=== PATIENT | female | born 1930 | race Caucasian/White ===

== ENCOUNTER 2016-12-03 14:44 | Inpatient (IN) ==
--- NOTE | 2016-12-03 15:01 | PROVIDER DOCUMENTATION ---
HPI-General Adult - General Chief Complaint: Edema Stated Complaint: Edema Time Seen by Provider: 12/03/16 14:48 Source: patient, family Allergies/Adverse Reactions: Patient Allergies Allergy/AdvReac Type Severity Reaction Status Date / Time Penicillins Allergy Severe ANAPHYLAXIS Verified 02/02/15 10:15 Sulfa (Sulfonamide Allergy Severe ANAPHYLAXIS Verified 02/02/15 10:15 Antibiotics) latex Allergy Unknown Unknown Verified 02/02/15 10:15 codeine Allergy DIARRHEA Verified 02/02/15 10:15 Home Medications: Home Medication List Medication Instructions Recorded Confirmed Last Taken Type Fexofenadine [Edie] 180 mg PO DAILY 10/12/12 08/27/14 08/26/14 08:00 History Glipizide [Glucotrol] 10 mg PO BID 10/12/12 08/27/14 08/26/14 16:00 History Lisinopril/Hydrochlorothiazide 25 mg PO DAILY 10/12/12 08/27/14 08/26/14 08:00 History [Lisinopril-Hctz 20-25 mg Tab] Metformin HCl [Metformin HCl ER] 500 mg PO BID 10/12/12 08/27/14 08/26/14 16:00 History Metoprolol Succinate E.r. [Toprol 25 mg PO DAILY 10/12/12 08/27/14 08/26/14 03: 30 History Xl] Docusate Sodium [Colace] 2 cap PO HS 08/09/14 08/27/14 08/26/14 20:30 History Doxazosin [Cardura] 1 mg PO DAILY 08/09/14 08/27/14 08/26/14 08:30 History Ferrous Sulfate [Albafort] 325 mg PO DAILY 08/09/14 08/26/14 08/09/14 19:00 History Insulin Glargine [Lantus] 8 units SQ HS 08/09/14 08/27/14 08/26/14 20:30 History Insulin Human Regular [Humulin R] 4 units SQ QAM 08/09/14 08/27/14 08/26/14 08: 00 History Pantoprazole [Protonix] 40 mg PO DAILY@0700 #30 tablet 08/09/14 08/27/14 08:00 Rx Polyethylene Glycol 3350 [Miralax] 17 gm PO DAILY 08/09/14 08/27/14 08/26/14 08: 30 History Diphenoxylate/Atropine [Lomotil] 1 each PO Q6H PRN PRN 08/26/14 08/26/14 Unknown History Furosemide [Lasix] 20 mg PO PRN PRN 08/26/14 08/26/14 Unknown History Hydrocodone/Acetaminophen [[place] 1 each PO Q4H PRN PRN 08/26/14 08/26/14 Unknown History 7.5-325 Tablet] Insulin Human Regular [Humulin R] 8 unit SUBQ QPM 08/26/14 08/27/14 08/26/14 20: 00 History LISINOpril [Prinivil] 10 mg PO HS 08/26/14 08/27/14 08/26/14 20:30 History Magnesium Hydroxide [Milk of 30 ml PO DAILY PRN PRN 08/26/14 08/26/14 Unknown History Magnesia] Ondansetron [Zofran Odt] 4 mg PO TID PRN PRN 08/26/14 08/26/14 Unknown History Warfarin [Coumadin] 4.5 mg PO QHS 08/26/14 08/27/14 08/22/14 20:00 History - History of Present Illness -Gen Adult Nature of Presenting Problems: pt is a 86 y/o F that presents to the ER with swelling to bilateral legs for 4 days. Denies chest pain or shortness of breath. No cough or fever. Has seen Dr.Irle terrance ortiz. Patient also bit her tongue. Location of Pain/Injury: reports: lower extremity Quality of Pain: reports: dull Severity: reports: moderate, severe Onset/Duration: reports: gradual, 4 days ago Timing: reports: still present, getting worse Context/Activities at Onset: reports: none Modifying Factors: improves with: nothing Associated Symptoms: reports: EENT symptoms. denies: back/neck pain, diarrhea, fever/chills, genitourinary problems, shortness of breath, vomiting Similar Symptoms Previously?: Yes Recently seen or treated by another doctor?: Yes Review of Systems - Adult - REVIEW OF SYSTEMS - ADULT Constitutional: denies: chills, fever Eyes: reports: no symptoms reported Ears, Nose, Mouth & Throat: reports: no symptoms reported Cardiovascular: reports: edema. denies: chest pain, palpitations Respiratory: denies: cough, dyspnea on exertion, shortness of breath, wheezing Gastrointestinal: denies: abdominal pain, diarrhea, nausea, vomiting Genitourinary: reports: no symptoms reported Musculoskeletal: denies: back pain, muscle aches, muscle weakness Integumentary: reports: no symptoms reported Neurological: reports: no symptoms reported Psychiatric: reports: no symptoms reported Endocrine: reports: no symptoms reported Hematologic/Lymphatic: reports: no symptoms reported Allergic/Immunologic: reports: no symptoms reported All Other Systems: Reviewed and Negative Past History - Adult - PAST MEDICAL HISTORY-ADULT Review of Records: reports: Old Records Reviewed, Nursing Assessment Review, Medications Reviewed Cardiovascular: reports: HTN Respiratory: reports: asthma Gastrointestinal: reports: GERD Neurological: reports: CVA, stroke deficits - PRIOR SURGERIES/PROCEDURES Surgical/Procedure History: reports: cholecystectomy, hysterectomy - IMMUNIZATION STATUS Childhood Immunizations: UTD - FAMILY HISTORY Family History: reviewed, not pertinent - SOCIAL HISTORY Smoking: non-smoker Living Situation: care facility Physical Exam-General - PHYSICAL EXAM-ADULT Initial Vital Signs Reviewed: Yes - CONSTITUTIONAL General Appearance: alert, no apparent distress - EYES Eyes: PERRL/EOMI, pale conjunctivae - HEAD, EARS, NOSE, MOUTH & THROAT HENMT: TMs normal, pharynx normal, other (dry oral mucosa, bite emily tongue) - NECK Neck: full range of motion, normal inspection - RESPIRATORY Respiratory: lungs clear, normal breath sounds, no respiratory distress, no accessory muscle use - CARDIOVASCULAR Cardiovascular: no murmur, tachycardia - GASTROINTESTINAL (ABDOMEN) Abdominal Exam: normal bowel sounds, soft, no organomegaly, no pulsatile mass, tenderness (diffusely) - MUSCULOSKELETAL Extremity: normal capillary refill, pedal edema (4 plus from ankle to upper thigh) - SKIN Integumentary: warm/dry. negative: ecchymosis - NEUROLOGIC Neurologic: grossly normal, no motor/sensory deficits - PSYCHIATRIC Psych/Mental Status: normal mood/affect, normal thought content, normal thought process, oriented x 3 Progress - PLAN OF CARE/RESULTS Progress/Plan/Lab Results: Vital Signs - 8 hr 12/03/16 14:49 Temperature 97.8 F Pulse Rate 120 H Respiratory Rate 20 Blood Pressure 137/52 O2 Sat by Pulse Oximetry 95 Result Diagrams: 12/03/16 15:22 - CONSULTS/PCP/HOSPITALIST Notification #1 *Consult/PCP/Hospitalist*: Time Discussed: 15:38 Consult Disposition: Admit Departure - Departure Time of Disposition Decision: 15:38 DIAGNOSIS: Anasarca, Gross hematuria Anemia Qualifiers: Anemia type: unspecified type Qualified Code(s): D64.9 - Anemia, unspecified Disposition: ADMITTED INPATIENT 09 Certified Medical Emergency: Emergent Condition: Stable Referrals and Follow-Ups: Wilmer Figueroa MD [Primary Care Provider] -
[2016-12-03 15:25] LABS: MANUAL DIFF NEEDED? NO
[2016-12-03 15:29] LABS: BASO% 0.3 % (0.0-0.8); EOS# 0.09 X1000 (0.0-0.7); EOS% 0.8 % (0.0-10.0); HEMATOCRIT 20.3 % (37.0-47.0); HEMOGLOBIN 6.5 g/dL (12.0-16.0); IMM GRAN# 0.04 X1000 (0.0-0.04); IMM GRAN% 0.4 % (0.0-0.5); LYMPH# 1.78 X1000 (1.2-3.4); LYMPH% 15.9 % (20.5-51.1); MCH 28.6 PG (27-31); MCV 89.4 FL (81-99); MONO# 0.85 X1000 (0.11-0.59); MONO% 7.6 % (1.7-9.3); MPV 9.6 FL (7.4-10.4); PLT 433 X1000 (130-400); RBC 2.27 XMIL (4.2-5.4)
[2016-12-03 15:58] LABS: BILIRUBIN URINE NEGATIVE (NEGATIVE); BLOOD URINE 4+ (NEGATIVE); CLARITY VERY CLOUDY (CLEAR); COLOR YELLOW; GLUCOSE URINE NEGATIVE (NEGATIVE); LEUKOCYTES URINE 1+ (NEGATIVE); NITRITE URINE NEGATIVE (NEGATIVE); PROTEIN URINE 1+(30 mg/dL) mg/dL (NEGATIVE); SP GRAVITY URINE 1.005; UROBILINOGEN URINE 1+(1 mg/dL)
[2016-12-03 15:59] LABS: URINE EPITHELIAL CELLS <10 /HPF (<10); URINE RBC TNTC /HPF (<10); URINE SOURCE CATH; URINE WBC <10 /HPF (<10)
[2016-12-03 16:00] LABS: URINE CULTURE PL NEEDED? YES
[2016-12-03 16:02] LABS: ALBUMIN 2.6 g/dL (3.5-5.0); CALCIUM 8.2 mg/dL (8.8-10.2); POTASSIUM 3.6 mmol/L (3.5-5.1); TOTAL BILIRUBIN 1.2 mg/dL (0.20-1.00); TOTAL PROTEIN 6.5 g/dL (6.3-8.3)
--- NOTE | 2016-12-03 16:36 | Diag Imaging Result Document ---
PROCEDURE NAME: US RENAL 2 (RETROPER) COMPLETE - 12/03/2016 RENAL/BLADDER ULTRASOUND PERFORMED PORTABLY: INDICATION: Abdomen pain. Low hemoglobin and hematocrit. Bladder cancer. Hematuria. FINDINGS: This evaluation is limited technically. The bladder was decompressed via Abebe catheter. The kidneys appear normal in size. There is cortical thinning bilaterally. No hydronephrosis is appreciated. There are a few well-circumscribed probable cystic areas anteromedial to the left kidney. The largest measures 1.5 cm. IMPRESSION: 1. No hydronephrosis. 2. Urinary bladder is decompressed via Abebe catheter. 3. Probable perirenal cysts on the left.
[2016-12-03 16:55] LABS: PTT PL 142.1 Seconds (22.6-43.9)
[2016-12-03 17:06] LABS: INR > 16.00 (0.86-1.15); PROTIME 119.2 Seconds (12.1-15.5)
[2016-12-03] MEDS ORDERED: VITAMIN K SUBQ ONE (17:08)
[2016-12-03] MEDS ORDERED: PROTONIX 80 MG in NS 80 ML IV ONE (17:42)
[2016-12-03] MEDS ORDERED: ZOFRAN IV PRN ×2 (17:55→20:55)
[2016-12-03] MEDS ORDERED: PROTONIX 80 MG in NS 80 ML IV SCH (18:15)
--- NOTE | 2016-12-03 18:18 | HISTORY AND PHYSICAL ---
PRIMARY CARE PHYSICIAN: Dr. Wilmer Figueroa. CHIEF COMPLAINT: Lower extremity edema. HISTORY OF PRESENT ILLNESS: This is an 86-year-old female with a history hypertension, diabetes mellitus, prior CVA, who presented to the emergency room with increasing confusion and lower extremity edema over the last 2-3 days. The daughter states that she had been in her normal state of health until probably about Tuesday she started having a little bit confusion and just through the last 24-48 hours she has been more confused, she has been lethargic so she was brought in for an evaluation. She was found to have a hemoglobin of 6.5 and hematocrit 20.3 with an INR of greater than 16 and elevated LFTs. Abebe catheter was placed in the emergency room and urine is grape juice colored with no clots. The daughter is unaware of any prior hypercoagulable events. She is unaware of any GI bleed or any workup for GI bleed. At present the patient mumbles but cannot give a history. In the emergency room Abebe was placed. IV access was obtained. She was admitted for further evaluation and treatment. PAST MEDICAL HISTORY: Hypertension, diabetes mellitus type 2, prior CVA. PAST SURGICAL HISTORY: Cholecystectomy, hysterectomy. SOCIAL HISTORY: She lives at [facility] with no smoking, alcohol or illicit drug use. ALLERGIES: Penicillin, sulfa, latex and codeine. HOME MEDICATIONS: A list will be obtained. REVIEW OF SYSTEMS: Unable to obtain. PHYSICAL EXAMINATION: GENERAL: This is an 86-year-old female who is lying in the bed lethargic in no distress. VITAL SIGNS: Blood pressure is 129/54 with a heart rate of 93, respirations are 16, temperature is 97.8 degrees oral with room air saturations 96%. HEENT: Head is normocephalic, atraumatic. Pupils equal, round, react to light. Sclerae are anicteric. Mucous membranes are dry. NECK: Supple. Trachea is midline. CARDIOVASCULAR: Regular rate and rhythm. S1, S2 appreciated. PULMONARY: Breath sounds are diminished but clear with no increased work of breathing noted. GASTROINTESTINAL: Abdomen soft, nondistended, nontender with bowel sounds in all 4 quadrants. EXTREMITIES: She has 4+ pitting edema from midthigh down with pulses palpable. NEUROLOGIC: She is lethargic, she will mumble to questions asked but we are unable to understand. LABS: WBC is 11.1, hemoglobin 6.5, hematocrit 20.3 and platelets of 433,000. INR is greater than 16. Sodium 137, potassium 3.6, BUN 102, creatinine 1.3 with a glucose of 197. Total bilirubin is 1.2 with AST 168, ALT 98, alkaline phosphatase of 1054. Urinalysis has too numerous to count red blood cells with 1+ bacteria. ASSESSMENT AND PLAN: 1. Hypercoagulable state. 2. Gastrointestinal bleed. 3. Profound anemia. 4. Gross hematuria. 5. Acute kidney injury. 6. Elevated liver function tests. 7. History of cerebrovascular accident. 8. Hypertension. The patient will remain NPO. She will be transferred to [facility] ICU. Ten of vitamin K was ordered in the emergency room. We will give 2 units of fresh frozen plasma stat, transfuse 2 units of blood, have 2 on hold. GI will be consulted. We will hold all her p.o. medications, put her on pattern blood glucose with sliding scale insulin. Further treatments pending hospital course. Dictated by NEAL Howell for Wale Alanis MD cc: NEAL Howell MD
[2016-12-03] MEDS ORDERED: NS 500 ML ONE (18:47)
[2016-12-03] MEDS ORDERED: HUMALOG DOSE (PARKWAY) SUBQ SCH (21:00)
[2016-12-03] MEDS: HUMALOG SUBQ SCH (21:00)
[2016-12-03] MEDS: PROTONIX 80 MG in NS 80 ML IV SCH (21:28)
[2016-12-04] MEDS ORDERED: CALMOSEPTINE OINTMENT TOP PRN (02:23)
[2016-12-04 03:29] LABS: INR 2.47; PROTIME 27.5 Seconds (9.2-11.7)
[2016-12-04 05:14] LABS: HEMATOCRIT 22.2 % (37.0-47.0); HEMOGLOBIN 7.3 g/dL (12.0-16.0); MCH 29.6 PG (27-31); MCHC 32.9 g/dL (33-37); MCV 89.9 FL (81-99); MPV 10.3 FL (7.4-10.4); RBC 2.47 XMIL (4.2-5.4)
[2016-12-04 05:32] LABS: ALBUMIN 2.4 g/dL (3.5-5.0); MAGNESIUM 2.1 mg/dL (1.5-2.7); POTASSIUM 3.3 mmol/L (3.5-5.1); TOTAL BILIRUBIN 1.14 mg/dL (0.20-1.00)
[2016-12-04] MEDS ORDERED: NS 250 ML IV SCH (05:51)
[2016-12-04] MEDS: HUMALOG SUBQ SCH ×4 (06:25→20:15)
[2016-12-04] MEDS: PROTONIX 80 MG in NS 80 ML IV SCH (06:25)
--- NOTE | 2016-12-04 11:33 | Diag Imaging Result Document ---
PROCEDURE NAME: THORAX/ABDOMEN/PELVIS W/O CONT - 12/04/2016 CT CHEST: A CT dose reduction protocol was used. COMPARISON: None. FINDINGS: There are some moderately enlarged supraclavicular lymph nodes bilaterally. There are enlarged pretracheal and precarinal lymph nodes as well. There is mild cardiomegaly. There are trace pleural effusions. There is some mild pulmonary edema. There is a dominant nodule at the lateral right middle lobe measuring 12 mm. There are several other smaller scattered nodules throughout the lungs bilaterally, more on the right than the left. Bony structures are intact. IMPRESSION: 1. Cardiomegaly and interstitial pulmonary edema. Trace pleural effusions. 2. Scattered pulmonary nodules, nonspecific but concerning for metastatic disease. 3. [id number] mediastinal and supraclavicular lymphadenopathy. CT ABDOMEN AND PELVIS: A CT dose reduction protocol was used. COMPARISON: 08/24/2014. FINDINGS: Two of the splenic masses are stable from prior. There is 1 new hypodense splenic mass measuring about 1.5 cm. There are numerous hypodense liver masses measuring up to about 2-3 cm. There is trace ascites. There is left renal vein retroperitoneal lymphadenopathy, new from prior. There is a questionable hypodense mass in the pancreas that is new from prior measuring 2.2 cm. The kidneys are unremarkable. Adrenals are grossly normal. No bowel obstruction or inflammation. There is extremely severe diverticulosis of the sigmoid colon. Abebe catheter in the urinary bladder. Rectum is normal. Uterus is absent. There is a left hip prosthesis. Significant degenerative changes throughout the spine. No acute bony lesions. IMPRESSION: Masses in the liver. New mass in the spleen. New lymphadenopathy in the retroperitoneum. Possible pancreatic mass. Trace ascites. Severe diverticulosis coli. [facility]
--- NOTE | 2016-12-04 11:37 | Diag Imaging Result Document ---
PROCEDURE NAME: US GB < RUQ (LIMITED) - 12/04/2016 RIGHT UPPER QUADRANT ULTRASOUND: COMPARISON: CT abdomen and pelvis from earlier 12/04/2016. FINDINGS: There are numerous masses throughout the liver compatible with metastases. There is trace perihepatic free fluid. The gallbladder is not visible. There are cholecystectomy clips on the CT. The right kidney is grossly normal. Pancreas is obscured. The common bile duct measures 5 mm. Aorta, IVC, and main portal vein are patent. IMPRESSION: Multiple liver metastases. Trace perihepatic free fluid.
[2016-12-04] MEDS ORDERED: BLISTEX MEDICATED BERRY LIP BALM TOP PRN (11:50)
[2016-12-04] MEDS ORDERED: SODIUM CHLORIDE 0.9% INJ SCH (12:00)
[2016-12-04] MEDS ORDERED: PROTONIX IV SCH (12:00)
--- NOTE | 2016-12-04 12:03 | PROGRESS NOTE ---
DATE: 12/04/2016 SUBJECTIVE: Today, Ms. Sultana referred to be doing fine. She is pretty much lucid. Per the nursing staff, there have never been any complaints. OBJECTIVE: Vital signs: Blood pressure is 143/67, pulse 93, respiration 15, temperature is 97.5. General: Ms. Sultana is an 86-year-old female. She was in bed, did not seem to be in any cardiopulmonary distress. HEENT: Mucosa is pink and moist. Anicteric and acyanotic. Neck: Supple. Positive JVD. Cardiovascular: Regular rate and rhythm. I did not appreciate any murmurs or rubs, no gallops. Chest: Good air entry bilaterally. There were a few bilateral crepitations and some distant faint wheezing. Abdomen: Soft and distended. There is shifting dullness. The liver is distended about 5 cm below the costal margin, has a very firm and hard lower border, and it is minimally tender. Extremities: About 2+ pedal edema. BIOINFORMATICIAN: The patient is fairly alert, oriented to place and to person, is able to follow some basic commands. She has nasal phonetics, but I think probably she has adenotonsillar hypertrophy LABORATORY DATA: WBC 9.42, hemoglobin 7.3, platelet count 344. Chemistry: Sodium is 142, potassium is 3.3, chloride 97, bicarb is 36, creatinine is 1.1. Total bilirubin is 1.14. AST is 139. ALT is 76. Alkaline phosphatase is 862. ASSESSMENT: Ms. Sultana is an 86-year-old female who was transferred from [place], comes here because of very abnormal INR. During the workup, the patient was also found to have blood in the stool and blood in the urine, and very, very abnormal liver function. 1. Fluid overload. I think this is probably related to the liver disease causing mild ascites and lower extremity edema. I did not see any chest x-ray done, so we will do a CT scan of the chest, abdomen, and pelvis to give us a better picture of the lungs, abdomen, and pelvis. 2. Hepatomegaly with features consistent with possible mass. Will do a CT scan to give us some more answers. Remarkably elevated alkaline phosphatase and other transaminitis. I think patient probably has an underlying malignancy which is causing these. 3. Normocytic anemia likely due to acute blood loss. The patient is status post 3 PRBC transfusions and 2 FFP. Hemoglobin is 7.3. We are going to keep a very close eye on this. 4. Supertherapeutic INR. Presenting INR was 16.0. According to the patient, she was on Coumadin before, unsure why she was taking that, not quite sure if this was due to Coumadin toxicity versus liver disease itself. In general, Ms. Sultana seems to be clinically stable. Her mentation is remarkably fine. I think her problem is related to the liver mass, so will go ahead and do a CT scan of the chest, abdomen, and pelvis. At this point, we will do it without contrast because of the kidney problems. If we find anything remarkably abnormal in the liver or in the abdomen, we may go ahead and do an MRI. The patient is also pending a GI evaluation. cc: Augusto Acosta MD
[2016-12-04] MEDS: ROCEPHIN 1 GM/NS 1 GM/50 ML IVPB IV SCH (12:48)
[2016-12-04 12:55] LABS: HEMATOCRIT 27.8 % (37.0-47.0); HEMOGLOBIN 9.1 g/dL (12.0-16.0); INR 1.72; MCH 29.6 PG (27-31); MCHC 32.7 g/dL (33-37); MCV 90.6 FL (81-99); MPV 9.8 FL (7.4-10.4); PROTIME 18.7 Seconds (9.2-11.7); RBC 3.07 XMIL (4.2-5.4)
[2016-12-04] MEDS: CARAFATE LIQUID PO SCH ×2 (14:43→20:06)
--- NOTE | 2016-12-04 15:06 | CONSULTATION ---
DATE OF CONSULTATION: 12/04/2016 PRIMARY CARE PHYSICIAN: Dr. Wilmer Figueroa M.D. PRIMARY HOSPITALIST: Dr. Augusto Acosta M.D. INDICATION FOR CONSULTATION: Anemia. HISTORY OF PRESENT ILLNESS: The patient is an 86-year-old white female who presented for evaluation of bilateral lower extremity edema for 2-3 days. According to the family, the patient was in her normal state of health until 5 days ago when she became more confused. Over the next 24-48 hours, she became progressively more confused and somewhat lethargic. She was brought into the emergency room for evaluation of her edema. As an outpatient prior to admission, she was evaluated by Dr. Figueroa who adjusted her blood pressure medications and her Lasix. In the emergency room, she was found to have a hemoglobin of 6.5 and hematocrit of 20.3 with an INR greater than 16. On serum chemistries, her liver function tests were noted to be elevated. When a Abebe catheter was placed to check her volume, her urine was grape colored but there were no clots. The patient is currently on Coumadin therapy for a prior CVA. She has had no hypercoagulable events in the past according to the family. It should be noted that while we were examining the patient, she had a bowel movement that revealed melenic stool. She underwent a CT scan this morning that is remarkable for cardiomegaly, interstitial pulmonary edema, trace bilateral pleural effusions, pulmonary nodules concerning for metastatic cancer, and mediastinal as well as supraclavicular lymphadenopathy. In addition, she has multiple masses in the liver, a new mass in the spleen, a possible pancreas mass in the head of the pancreas that is 2.2 cm, trace ascites , and severe diverticulosis. There is new lymphadenopathy in the retroperitoneum. There does not appear to be a colonic mass or lesion. These findings are very worrisome for metastatic cancer. PAST MEDICAL HISTORY: 1. Hypertension. 2. Diabetes 2. 3. CVA. 4. Obesity. 5. GERD. 6. Chronic constipation. 7. Iron deficiency anemia. PAST SURGICAL HISTORY: 1. Cholecystectomy. 2. Hysterectomy. SOCIAL HISTORY: The patient lives at an extended care facility. There is no history of alcohol, tobacco, or recreational drug use. MEDICATION ALLERGIES: 1. Penicillin. 2. Sulfa. 3. Latex. 4. Codeine. HOME MEDICATIONS: 1. Coumadin. 2. MiraLAX. 3. Protonix. 4. Zofran. 5. Toprol. 6. Metformin. 7. Milk of magnesia. 8. Lisinopril/hydrochlorothiazide. 9. Humulin R. 10. Lantus. 11. Delphi 7.5. 12. Glucotrol. 13. Lasix. 14. Edie. 15. Iron sulfate. 16. Cardura. 17. Colace. 18. Lomotil. FAMILY HISTORY: Noncontributory. REVIEW OF SYSTEMS: Remarkable in that the patient states that she is in pain. She describes right upper and right lower quadrant pain. She denies nausea with vomiting, heartburn, indigestion, fever, or chills. She denies blood in her stool or rectal bleeding. She denies rectal pain. She notes only the tenderness in the right side of her abdomen which is new in the last 2-3 days. PHYSICAL EXAMINATION: Vital signs: On exam, her blood pressure is 143/67, pulse 93, respirations 15, temp of 97.5 degrees. HEENT: Remarkable in that her sclerae are anicteric. The conjunctivae are pale. Her oropharyngeal mucosal membranes are very dry. She has dry, cracked mucosa on her tongue with old blood but no active bleeding. Pulmonary: Lungs are clear to auscultation anteriorly. There are decreased breath sounds in the bases bilaterally. Cardiovascular: Reveals regular rate and rhythm with occasional ectopy. There are no murmurs, gallops, or rubs. Abdominal Exam: Reveals hypoactive bowel sounds. The abdomen is soft, but distended. Her liver is enlarged and palpable with tenderness. The liver feels firm to hard to touch. She does have an aortic bruit that is best heard in the right middle quadrant. There is a protuberant abdomen consistent with central adiposity. Extremities: Bilaterally are notable for 1 to 2+ edema. Neurologic Exam: She is alert and oriented x3. OBJECTIVE DATA: Remarkable for hemoglobin of 7.3 with hematocrit of 22.2 and a white count of 9.42 with 344,000 platelets post transfusion. Her admission PT was 119.2 with an INR of greater than 16. Today her PT is 27.5 with an INR of 2.47. Sodium is 142, potassium 3.3, chloride 93, CO2 36, BUN 90, creatinine 1.1, with a glucose of 83. Her calcium is 8.0, magnesium 2.1, total bilirubin 1.14, AST 139, ALT 76, alkaline phosphatase 861, total protein 6.0, and albumin of 2.4. IMPRESSIONS: 1. Probable metastatic cancer of unknown primary. 2. Melena. 3. Anemia. 4. Urinary tract infection based on urinalysis that just became available. RECOMMENDATION: 1. To further evaluate the anemia, I recommend an EGD on Tuesday morning as she has melena with significant anemia. Her INR will need to be less than 1.5. 2. To further evaluate the lesions that are consistent with metastatic cancer, I will order a CT- guided liver biopsy to be performed after the EGD on Tuesday. The patient would like to know if this is cancer to determine if she will consider treatment. The family agrees with the patient. 3. Please consult Dr. Luz Fagan from hematology/oncology. 4. Please check a CEA. She may also need a CA19-9. I will discuss with Dr. Fagan. 5. To correct her INR, I will begin administering FFP on Tuesday. I will ask for a type and screen today such that will have the FFP available tomorrow. The goal is to correct her INR for the liver biopsy and for the EGD. However, as she will need to resume her Coumadin, I will avoid using vitamin K. 6. I will defer to the primary team for management of her urinary tract infection with antibiotics. 7. Our recommendations were discussed with the patient, her son, [id number] , and daughter. cc: MD Wilmer Schuster MD Raphael K. Quansah, MD MTDD
--- NOTE | 2016-12-04 22:39 | CONSULTATION ---
DATE OF CONSULTATION: 12/04/2016 REQUESTING PHYSICIAN: Patient seen initial consultation at the request of Dr. Acosta and Dr. Beasley. REASON FOR CONSULTATION: GI bleed and pancreatic and liver masses. HISTORY OF PRESENT ILLNESS: Ms Sultana is an 86-year-old woman with a history of stroke who presented to the emergency room with increasing lower extremity edema over 2-3 days with increasing confusion over 24 hours. In the emergency room she had a hemoglobin of 6.5, an INR of greater than 16. The patient was admitted to the ICU for further evaluation. Since admission to the ICU she has been noted to have melena. She has been given vitamin K and FFP as well as blood transfusion. She is scheduled for upper endoscopy and possible liver biopsy on Tuesday. She notes some abdominal pain at this time. Otherwise she denies complaints. Daughter is at bedside during consultation. PAST MEDICAL HISTORY: Is significant for stroke, hypertension, diabetes. PAST SURGICAL HISTORY: Cholecystectomy, hysterectomy. ALLERGIES: Penicillin, sulfa, latex and codeine. MEDICATIONS: Reviewed per chart. SOCIAL HISTORY: The patient denies tobacco, alcohol or illicit drug use. She lives in a prison. REVIEW OF SYSTEMS: Positives as per HPI. Otherwise 10 point review systems is negative. PHYSICAL EXAMINATION: General: This is a chronically ill-appearing woman who is elderly but in no acute distress. She is in mild discomfort secondary to pain. Vital signs: Temperature 97.6 degrees, pulse 92, respiratory rate 16, blood pressure 160/81, O2 saturation 98% on 2 L. HEENT: Sclerae anicteric. Conjunctivae are pale. Oropharynx is dry. Neck: Supple and symmetric with no lymphadenopathy, cardiomegaly or bruits. Cardiovascular: Regular rate and rhythm. Normal S1, S2. No murmurs, rubs, gallops. Pulmonary: Lungs clear to auscultation bilaterally without wheezes, rales, or rhonchi. Gastrointestinal: Abdomen is soft, nontender, nondistended with normoactive bowel sounds. Positive hepatomegaly, positive palpable abdominal aorta. Neurologic: The patient is alert, oriented x3. Answers questions appropriately. LABS: White count 10.8, hemoglobin up to 9.1 after transfusion, platelet count 341,000. INR 1.72 after FFP and vitamin K. Sodium 142, potassium 3.3, chloride 93, bicarb 36, BUN 90, creatinine 1.1, glucose 83, calcium 8.0, magnesium 2.1, total bilirubin 1.14, AST 139, ALT 76, alkaline phosphatase 861, albumin 2.4. CEA 497.2. Urinalysis. Too numerous to count red blood cells, 1+ white blood cells. Microbiology. Urine culture with gram-negative rods. IMAGING: Abdominal ultrasound with liver metastasis. CT with splenic masses, liver masses and a 2.2 cm pancreatic mass. ASSESSMENT AND PLAN: 1. Gastrointestinal bleed: Correct INR as has been done with FFP and vitamin K. Monitor for additional bleeding. EGD Tuesday. Avoid any anticoagulation. 2. Abdominal pain: P.r.n. pain medications as needed. The patient appears uncomfortable at this time. 3. Pancreatic and liver masses suspicious for metastatic pancreatic cancer. I had a long discussion with the patient and her daughter today regarding the likelihood of metastatic cancer. We discussed the treatment of metastatic cancer. We discussed hospice versus palliative chemotherapy with a goal of symptom control and increased life expectancy albeit cost of side effects of the treatment. They are going to consider whether they want to proceed with liver biopsy or proceed just with hospice care. I will check a CA-19-9 at this time. Will follow up with the patient and reassess symptom control. 4. Stroke: Avoid anticoagulation at this time. Control blood pressure as able at this time. Thank you for this consultation and opportunity to participate in the care of this very pleasant unfortunate patient. I will follow along with you and leave further recommendations as indicated during her hospital course. cc: MD Dr. Ramos Quiroz
[2016-12-05] MEDS: CARAFATE LIQUID PO SCH ×4 (01:06→20:19)
[2016-12-05] MEDS: MORPHINE IV PRN ×3 (03:11→22:39)
[2016-12-05] MEDS: HUMALOG SUBQ SCH ×4 (06:21→20:21)
[2016-12-05 06:57] LABS: MANUAL DIFF NEEDED? NO
[2016-12-05 07:07] LABS: BASO% 0.4 % (0.0-0.8); EOS# 0.22 X1000 (0.0-0.7); HEMATOCRIT 27.3 % (37.0-47.0); HEMOGLOBIN 8.9 g/dL (12.0-16.0); IMM GRAN# 0.06 X1000 (0.0-0.04); IMM GRAN% 0.5 % (0.0-0.5); LYMPH% 11.6 % (20.5-51.1); MCH 29.5 PG (27-31); MCHC 32.6 g/dL (33-37); MCV 90.4 FL (81-99); MONO# 1.06 X1000 (0.11-0.59); MONO% 9.4 % (1.7-9.3); MPV 10.5 FL (7.4-10.4); NEUT% 76.1 % (42.2-75.2); PLT 361 X1000 (130-400); RBC 3.02 XMIL (4.2-5.4)
[2016-12-05 07:32] LABS: AGAP 12; ALBUMIN 2.3 g/dL (3.5-5.0); ALKALINE PHOSPHATASE 931 U/L (32-104); BUN 61 mg/dL (8-22); CALCIUM 7.1 mg/dL (8.8-10.2); CHLORIDE 97 mmol/L (98-107); COSMO 310; GOT 159 U/L (10-30); GPT 86 U/L (10-36); POTASSIUM 3.8 mmol/L (3.5-5.1); SODIUM 144 mmol/L (136-145); TCO2 35 mmol/L (25-35); TOTAL BILIRUBIN 2.52 mg/dL (0.20-1.00); TOTAL PROTEIN 6.5 g/dL (6.3-8.3)
[2016-12-05] MEDS ORDERED: ALBUMIN 25% IV ONE (09:21)
[2016-12-05] MEDS ORDERED: LASIX IV ONE (09:21)
--- NOTE | 2016-12-05 09:58 | PROGRESS NOTE ---
DATE: 12/05/2016 SUBJECTIVE: Today, Ms. Sultana referred to be doing a little better. She was in bed. She did not actually have any complaints. Per the nursing staff, her night was uneventful. OBJECTIVE: Vital Signs: Blood pressure is 172/70, pulse is 98, respirations 21, temperature is 97.3 degrees. General Examination: Ms. Sultana is an 86-year-old, female. She is in bed and seems to be in mild respiratory distress. HEENT: Mucosa is slightly dry. Anicteric and acyanotic. Neck: Supple. There is mild JVD. Chest: Air entry is bilaterally reduced. There are diffuse bilateral inspiratory crackles. Cardiovascular: Tachycardic but no murmurs, no rubs. No gallops. Abdomen: Soft, is distended. There are positive fluid waves. There is also positive hepatosplenomegaly. CARD BOXER: Patient is alert, oriented to person and to place. The patient follows commands. Extremities: About 2+ pedal edema. Laboratory Data: WBC is 11.23, hemoglobin is 8.9, platelet count is 361,000. Sodium is 144, potassium is 3.8, chloride 97, bicarbonate is 35, BUN is 61, creatinine 0.7, glucose is 202. AST is 159, ALT is 86, alkaline phosphatase is 931. Diagnostic Studies: A CT scan of the chest, abdomen, and pelvis shows cardiomegaly and interstitial pulmonary edema, scattered pulmonary nodules nonspecific but concerning for metastatic disease, mild to moderate mediastinal and supraclavicular lymph node. The CT abdomen shows masses in the liver, new mass in the spleen, new lymphadenopathy in the retroperitoneum, possible pancreatic mass, trace ascites, and severe diverticulosis. Microbiology has shown E. coli in the urine. CEA is 497.2. ASSESSMENT: 1. Fluid overload. The patient has about 2+ pedal edema, has ascites, and pulmonary effusion. I think this is multifactorial including hypoalbuminemia as well as possible heart disease, likely diastolic dysfunction, and also underlying malignancy. We are going to give the patient a dose of albumin and Lasix to manage this fluid. We will do an echocardiogram in the morning to see what is her cardiac reserve. 2. Suspected pancreatic mass with metastatic lesions to retroperitoneal, mediastinal, and supraclavicular lymph nodes, spleen, and liver. Patient has been evaluated by gastroenterology and also by hematology/oncology. I think this is a metastatic disease that would have very minimal benefit with aggressive therapy. I am waiting to talk with the family members about palliative care versus aggressive treatment, depending on whatever they choose. I think the topic has already been introduced to them by Dr. Fagan. 3. Normocytic anemia secondary to acute gastrointestinal blood loss. Patient is status post 3 packed red blood cell transfusion. She is relatively stable. My understanding is esophagogastroduodenoscopy is planned for tomorrow. 4. Supratherapeutic INR due to Coumadin as well as liver disease. This has been corrected. Yesterday, INR was down to 1.7. We are going to repeat it today to see where it is. 5. Diverticulosis noted. 6. Escherichia coli urinary tract infection. Patient is currently on Rocephin which is sensitive. PLAN: In general, Ms. Sultana seems to be relatively stable. She is showing mild respiratory distress. I think it is mainly due to the lung involvement of the cancer as well as the pleural effusions. We will give her a dose of Lasix with albumin to enhance the fluid management. We will do an echocardiogram for tomorrow morning. Hopefully, we will be able to talk to the family members today or tomorrow. cc: Augusto Acosta MD
[2016-12-05] MEDS: PROTONIX IV SCH ×2 (10:05→20:21)
[2016-12-05 10:37] LABS: INR 1.22
[2016-12-05] MEDS: ROCEPHIN 1 GM/NS 1 GM/50 ML IVPB IV SCH (13:00)
--- NOTE | 2016-12-05 14:57 | ECHO REPORT ---
ORDER DATE: 12/05/2016 INDICATION: Respiratory distress. Lung cancer. Pleural effusion. FINDINGS: 1. Right atrium is normal in size. 2. Mild tricuspid regurgitation. 3. Normal RV size and systolic function. 4. No significant pulmonic insufficiency. 5. Normal left atrial size at 3.5 cm. 6. No mitral valve prolapse. Mild mitral regurgitation. There is a calcific area adherent to the tip of the mitral leaflet that may be evidence of an old healed vegetation. 7. Normal LV size, end-diastolic dimension of 3.7. Normal wall thicknesses with a posterior and interventricular septal wall thickness of 1.1 and 1 cm respectively. Normal LV systolic function. Calculated EF of 62% with normal wall motion. 8. The aortic valve opens well. No evidence of stenosis. The valve is trileaflet. No evidence of insufficiency. 9. The aorta appears normal in visualized segments. 10. No pericardial effusion seen. 11. Heart rate during the study was in the 90s. cc: MD Augusto Dewey MD
[2016-12-05] MEDS: LANTUS SUBQ SCH (20:20)
[2016-12-06] MEDS: CARAFATE LIQUID PO SCH ×4 (01:12→19:54)
[2016-12-06] MEDS: MORPHINE IV PRN ×4 (03:24→20:13)
[2016-12-06] MEDS: HUMALOG SUBQ SCH ×4 (06:16→20:08)
[2016-12-06] MEDS: PROTONIX IV SCH ×2 (08:01→20:08)
--- NOTE | 2016-12-06 11:22 | PROGRESS NOTE ---
DATE: 12/06/2016 SUBJECTIVE: Today, Ms. Sultana referred to be doing fine except some generalized muscle pains. OBJECTIVE: Vital Signs: Blood pressure is 192/95, pulse is 109, respirations are 18, temperature is 98.8 degrees. General Examination: Ms. Sultana is an 86-year-old, female. She was in bed. She did not seem to be in any respiratory distress but was in mild pain. HEENT: Mucosa is pink and moist. Anicteric and acyanotic. Neck: Supple. Chest: Air entry is bilaterally reduced. There are diffuse bilateral posterior dry crackles and some end expiratory wheezing. Cardiovascular: Tachycardic but no murmurs, no rubs. No gallops. Abdomen: Soft, minimally tender. There are positive fluid waves and there is also hepatosplenomegaly. RATE QUOTING OPERATOR: Patient is alert. She is able to follow some basic commands. Extremities: Maybe 1+ pedal edema. Lab Work: No lab work for this morning. ASSESSMENT: 1. Fluid overload. The etiology is unclear. It sounds to be a multifactorial including hypoalbuminemia and diastolic heart failure. 2. Suspected pancreatic mass with metastatic lesions to retroperitoneal, mediastinal, and supraclavicular lymph nodes, spleen, liver, and chest. 3. Normocytic anemia, likely secondary to the underlying malignancy. 4. Supratherapeutic INR due to Coumadin as well as liver disease. This has been corrected. 5. Diverticulosis noted. 6. Escherichia coli urinary tract infection. Patient is on Rocephin. PLAN: In general, Ms. Sultana is an 86-year-old, female who initially presented to [place] because of generalized weakness and leg swelling. In the workup, a CT scan of the abdomen and pelvis was done which showed numerous liver metastases, numerous lymph nodes and lung metastases. The patient was found also to have an INR level of 16 on admission and was given 2 FFP transfusion, and this has normalized. Her main issues now will be regarding the workup and the therapeutic approach for the suspected pancreatic cancer now. I had an extensive discussion with the family members yesterday. Apparently, they are now leaning towards comfort care measures. I have not seen the daughter this morning to speak with her but I will go ahead and put in a consult for palliative care so that they will be able to discuss goals of care with the family. Patient is being followed by GI and Dr. Fagan of hematology/oncology. We are still pending the CA- 19-9 antigen. If the family decides finally not to go with any aggressive interventions and no aggressive therapy, then we would discuss hospice with the family and go from there. 16:50 I spoke with the Daughter in the unit, nurse Mishel was present. The family has agreed to go hospice. Hospice will be consulted and once all arrangements have been done then we discharge patient home on Hospice care. cc: Augusto Acosta MD MTD[facility]as
[2016-12-06 12:07] LABS: AGAP 9; BUN 23 mg/dL (8-22); CALCIUM 8.3 mg/dL (8.8-10.2); CHLORIDE 100 mmol/L (98-107); COSMO 295; SODIUM 142 mmol/L (136-145); TCO2 33 mmol/L (25-35)
[2016-12-06] MEDS: ROCEPHIN 1 GM/NS 1 GM/50 ML IVPB IV SCH (12:16)
[2016-12-06] MEDS ORDERED: SODIUM CHLORIDE 0.9% INJ SCH (18:00)
[2016-12-06] MEDS ORDERED: PROTONIX IV SCH ×2 (18:00→21:00)
[2016-12-06] MEDS ORDERED: APRESOLINE IV PRN (19:40)
[2016-12-06] MEDS ORDERED: APRESOLINE IV ONE (19:41)
--- NOTE | 2016-12-06 19:49 | PALLIATIVE CARE CONSULTATION ---
DATE: 12/06/2016 REQUESTING PHYSICIAN: Augusto Acosta MD REASON FOR CONSULTATION: Goals of care. HISTORY OF PRESENT ILLNESS: This is an 86-year-old, female, with a past medical history of hypertension, diabetes mellitus type 2, and prior cerebrovascular accident. She was most recently admitted on 12/03/2016 after presenting to the emergency room with complaints of progressive confusion and lethargy. It is reported by the daughter that she was in her normal state of health during the week prior to this admission. She is a resident at [facility]. She would ambulate with a walker and was very active at the [facility]. While in the emergency room she was found to have a hemoglobin of 6.5 and hematocrit of 20.3. Her INR was greater than 16 and showed elevated liver function tests. Further work up with a CT of the abdomen and pelvis revealed numerous liver metastasis, numerous lymph nodes , and lung metastasis. She has also been followed by GI for melenic stools. Oncology has been consulted and discussed palliative chemotherapy versus hospice. At this time, Ms. Sultana is lying in the hospital bed. She remains in the ICU. She is alert and oriented to person, place, and time. She does complain of pain mostly to her abdomen and her legs. She denies nausea. She denies anxiety or depression. She also denies dyspnea. She states that she is thirsty. The palliative care team has been consulted to assist with goals of care. REVIEW OF SYSTEMS: Ten point review of system has been conducted and is otherwise negative except those mentioned in the history of present illness. PAST MEDICAL HISTORY: 1. Hypertension. 2. Diabetes mellitus type 2. 3. Prior cerebrovascular accident. PAST SURGICAL HISTORY: 1. Cholecystectomy. 2. Hysterectomy. SOCIAL HISTORY: Prior to this admission, she was a resident at [facility]. Alcohol, tobacco, and drug use have been denied. She has 2 children, the daughter and son who are very attentive to her care. PHYSICAL EXAMINATION: General: This is an 86-year-old, female, who is lying in the hospital bed. She is grimaced and appears uncomfortable. HEENT: Atraumatic, normocephalic. Neck: Trachea is midline. Cardiovascular: Increased rate. Regular rhythm. Pulmonary: Lung sounds are diminished, but clear. Abdomen: Distended. Soft. Bowel sounds are active. Extremities: Pulses are palpable. Neurological: She is alert and oriented to person, place, and time. IMPRESSION: This is an 86-year-old, female, with a past medical history as listed above in the history of present illness. I met with Ms. Sultana, her daughter, son, and [id number] to discuss goals of care. The family has elected comfort measures and would like to go back to [facility] with hospice services. A hospice consult order will be placed. The family has stated that they do not want any further lab work or x-rays. They state that if her IV comes out that they do not want that restarted, that they want strictly comfort measures only. As previously mentioned, Ms. Sultana is currently complaining of pain. She is unable to rate that pain. It is time for her morphine to be administered. I have asked the nurse to give that and the palliative care team will follow and to determine the effectiveness of that medication and adjust as needed. The family plans to contact [facility] to determine if the patient will be accepted back considering her significant decline in functional status. In the meantime, they will meet with the hospice customer response representative to begin the process of obtaining hospice services. The palliative care team will continue to follow daily and as needed to help ensure that Ms. Sultana is comfortable. Thank you for this consultation. Dictated by NEAL Lubin for Samy Gallegos MD cc: NEAL Lubin MD [facility]
[2016-12-06] MEDS ORDERED: INSULIN PEN NEEDLES ONE (20:06)
[2016-12-06] MEDS: LANTUS SUBQ SCH (20:08)
[2016-12-06] MEDS: SODIUM CHLORIDE 0.9% INJ SCH (20:08)
[2016-12-07] MEDS: MORPHINE IV PRN ×3 (00:06→08:03)
[2016-12-07] MEDS: CARAFATE LIQUID PO SCH ×4 (02:51→19:41)
[2016-12-07] MEDS: HUMALOG SUBQ SCH ×4 (06:03→20:20)
[2016-12-07] MEDS: SODIUM CHLORIDE 0.9% INJ SCH ×2 (08:04→20:19)
[2016-12-07] MEDS: PROTONIX IV SCH ×2 (08:04→20:19)
[2016-12-07] MEDS ORDERED: KLOR-CON PO ONE (08:31)
[2016-12-07] MEDS ORDERED: PERCOCET-5 PO SCH (09:45)
[2016-12-07] MEDS: TOPROL XL PO SCH (10:19)
[2016-12-07] MEDS: DILAUDID IV PRN (10:19)
[2016-12-07] MEDS: PRINZIDE 20/12.5MG PO SCH (10:19)
--- NOTE | 2016-12-07 10:19 | PROGRESS NOTE ---
DATE: 12/07/2016 SUBJECTIVE: Patient is sleepy today, but complaining of pain all over her body, mostly on abdomen and left and right side of the chest. OBJECTIVE: Vital Signs: Temperature 98.8 degrees, heart rate 100, respiratory rate 20, blood pressure 167/78, O2 saturation 95% 4 L nasal cannula. General examination: This is a chronically ill-looking and frail, 86-year-old female, lying in bed in no acute distress. HEENT: Head is normocephalic, atraumatic. Anicteric sclerae and pale conjunctivae. Mucous membranes very dry. Neck: Supple. No JVD noted. No carotid bruits. No lymphadenopathy. No thyromegaly. Cardiovascular exam: S1, S2 heard. Tachycardic, but there are no murmurs, gallops or rubs. Respiratory exam: There are still some crackles in both bases. Mild expiatory wheezing as well. Patient is not using any accessory muscles or having work of breathing. Abdomen: Soft. Diffuse mild tenderness to palpation. Hepatosplenomegaly noted. Extremities: 1+ pitting edema in both lower extremities. No cyanosis or clubbing, and peripheral pulses present in both legs, but faint. Neurological exam: Patient is sleepy, but moves 4 extremities. ASSESSMENT: 1. Suspected pancreatic cancer with metastatic lesions of retroperitoneal, mediastinal, and supraclavicular lymph nodes. Also, the spleen and liver and chest. 2. Fluid overload. 3. Normocytic anemia. 4. Diverticulosis. 5. Urinary tract infection. PLAN: The patient is being admitted to the hospital for the above-mentioned diagnosis. By now, the patient and family have decided to go for hospice. We are waiting for hospice to set up everything, so she can discharge from the intensive care unit bed. The blood pressure has been high, so we are going to reinstitute her home medications, and we are going to change pain medications to Percocet 5 mg p.o. q. 6 hours as scheduled and Dilaudid 1 mg IV q. 2 hours p.r.n. to pain because we are not controlling the pain very well. The INR is corrected completely. When she came in it was 16.0 and two days ago was 1.22. Further recommendations to follow according to the clinical situation of the patient. cc: Troy Schofield MD
[2016-12-07] MEDS: ROCEPHIN 1 GM/NS 1 GM/50 ML IVPB IV SCH (11:37)
[2016-12-07] MEDS: PERCOCET-5 PO SCH ×2 (14:00→19:41)
--- NOTE | 2016-12-07 14:31 | PALLIATIVE CARE PROGRESS NOTE ---
DATE: 12/07/2016 SUBJECTIVE: Ms. Sultana is sleeping on my arrival, but does arouse easily. She denies pain. OBJECTIVE: General: This is a chronically ill-appearing 86-year-old, female, who does not appear to be in any acute distress. HEENT: Atraumatic, normocephalic. Neck: Supple. Cardiovascular: Increased rate. Regular rhythm. Pulmonary: Lung sounds are diminished with crackles auscultated to bilateral bases. Respirations are nonlabored. Abdomen: Soft. Extremities: Pulses are palpable. ASSESSMENT AND PLAN: Dilaudid was added this morning by the primary team and appears to be very effective. Currently Ms. Sultana has no acute complaints. There is no family at the bedside. I spoke with the social media manager this morning and she is waiting for family to arrive to discuss which hospice they would like to go with. Ms. Sultana is a DNR level 1. The palliative care team will continue to follow. Dictated by NEAL Lubin for Samy Gallegos MD cc: NEAL Lubin MD
[2016-12-07] MEDS: LANTUS SUBQ SCH (20:21)
[2016-12-08] MEDS: CARAFATE LIQUID PO SCH ×4 (01:04→20:15)
[2016-12-08] MEDS: PERCOCET-5 PO SCH ×4 (01:04→20:15)
[2016-12-08] MEDS: DILAUDID IV PRN (05:29)
[2016-12-08] MEDS: HUMALOG SUBQ SCH ×4 (06:26→23:30)
[2016-12-08] MEDS: SODIUM CHLORIDE 0.9% INJ SCH ×2 (08:54→20:16)
[2016-12-08] MEDS: PROTONIX IV SCH ×2 (08:54→20:16)
[2016-12-08] MEDS: TOPROL XL PO SCH (08:55)
[2016-12-08] MEDS: PRINZIDE 20/12.5MG PO SCH (08:55)
[2016-12-08] MEDS: MORPHINE IV PRN ×2 (10:40→18:57)
--- NOTE | 2016-12-08 10:50 | PROGRESS NOTE ---
DATE: 12/08/2016 SUBJECTIVE: Patient is sleepy but she responds to verbal stimuli and she said that the pain is well controlled. OBJECTIVE: Vital Signs: Temperature 99.6 degrees, heart rate 90, respiratory rate 20, blood pressure 142/54, O2 saturation 99% on 4 L nasal cannula. General Examination: This is a chronically ill-looking and frail, 86-year-old female lying in bed, in no acute distress. HEENT: Head is normocephalic, atraumatic. Anicteric sclerae and pale conjunctivae. Mucous membranes dry, very dry. Neck: Supple, no JVD noted. No carotid bruits. No lymphadenopathy. No thyromegaly. Cardiovascular: S1, S2 heard. No murmurs, gallops, or rubs. Regular rate and rhythm. Respiratory: Examination, some crackles in both bases with mild expiratory wheezing. Patient is not using any accessory muscles or having work of breathing. Abdomen: Soft. Diffuse mild tenderness to palpation mainly in the epigastric area. Hepatosplenomegaly noted. Extremity: 1+ pitting edema in both lower extremities. No cyanosis or clubbing. Peripheral pulses present in both legs. Neurological: Patient is sleepy but moves 4 extremities. ASSESSMENT: 1. Pancreatic cancer with metastatic lesions to the retroperitoneal, mediastinal, and supraclavicular lymph nodes. Also, to the spleen, liver, and chest. 2. Fluid overload. 3. Normocytic anemia. 4. Diverticulosis. 5. Urinary tract infection. PLAN: The patient has been admitted to the hospital for all the above mentioned diagnoses. At this time, family has decided to go for hospice. At this point, we are not sure if this patient is planning to go back to the assisted living facility with hospice or inpatient hospice. This patient is now stable with pain controlled so I think the best option for her is to go to assisted living with hospice. [facility] following this patient. Also social media marketing manager is following this patient as well. At this point, we will continue with Percocet and Dilaudid for management of pain. As soon as we decide where this patient is going, we will discharge this patient. cc: Troy Schofield MD
[2016-12-08] MEDS: ROCEPHIN 1 GM/NS 1 GM/50 ML IVPB IV SCH (13:50)
--- NOTE | 2016-12-08 18:08 | PALLIATIVE CARE PROGRESS NOTE ---
DATE: 12/08/2016 SUBJECTIVE: Ms. Sultana appears sleepy but she arouses easily and denies pain, nausea, or dyspnea. OBJECTIVE: General: This is an 86-year-old, female, who does not appear to be in any acute distress. Cardiovascular: Normal S1, S2. Pulmonary: Lung sounds are diminished with crackles to bilateral bases. Respirations are nonlabored. Abdomen: Soft. Bowel sounds are active. She does complain of mild tenderness to the right upper quadrant. Extremities: +1 pitting edema noted to bilateral lower extremities. Pulses are present. ASSESSMENT AND PLAN: Ms. Sultana does not have any acute complaints. She denies pain, nausea and dyspnea. Current plan is to go home to [place] with [facility]. I believe that is going to take place tomorrow or Tuesday. The palliative care team will continue to follow. Dictated by NEAL Lubin for Samy Gallegos MD cc: NEAL Lubin MD
[2016-12-08] MEDS: LANTUS SUBQ SCH (23:31)
[2016-12-09] MEDS: CARAFATE LIQUID PO SCH ×3 (02:09→14:38)
[2016-12-09] MEDS: PERCOCET-5 PO SCH ×3 (02:09→14:37)
[2016-12-09] MEDS: HUMALOG SUBQ SCH ×3 (07:02→16:59)
[2016-12-09] MEDS: PROTONIX IV SCH (08:21)
[2016-12-09] MEDS: TOPROL XL PO SCH (08:21)
[2016-12-09] MEDS: SODIUM CHLORIDE 0.9% INJ SCH (08:21)
[2016-12-09] MEDS: PRINZIDE 20/12.5MG PO SCH (08:22)
[2016-12-09] MEDS: MORPHINE IV PRN (12:36)
[2016-12-09] MEDS: ROCEPHIN 1 GM/NS 1 GM/50 ML IVPB IV SCH (12:40)
--- NOTE | 2016-12-09 13:39 | PALLIATIVE CARE PROGRESS NOTE ---
DATE: 12/09/2016 SUBJECTIVE: Ms. Sultana is sleeping on my arrival but does arouse easily. She does not have any acute complaints and states that she feels better than she did yesterday. OBJECTIVE: General: This is an 86-year-old female, who does not appear to be in any acute distress. Cardiovascular: Regular rate and rhythm. Pulmonary: Lung sounds are diminished. Respirations are nonlabored. Abdomen: Soft. Bowel sounds are active. Extremities: Pulses are palpable. She does have 1+ pitting edema to bilateral lower extremities. ASSESSMENT AND PLAN: The plan continues to be that Ms. Sultana will discharge to [facility] with hospice services. As mentioned previously, she does not have any acute complaints. It appears that her current pain medication regimen is effective. The palliative care team will continue to follow. Dictated by NEAL Lubin for Samy Gallegos MD cc: NEAL Lubin MD
--- NOTE | 2016-12-09 15:57 | DISCHARGE SUMMARY ---
ADMISSION DATE: 12/03/2016 DISCHARGE DATE: 12/09/2016 CONSULTATIONS: 1. Dr. Luda Beasley with Gastroenterology. 2. Dr. Huy Fagan with Hematology/Oncology. 3. Nadine Rausch with palliative care. PROCEDURES: Chest, abdomen and pelvis CT showed cardiomegaly and interstitial pulmonary edema. Trace pleural effusions. Scattered pulmonary nodules nonspecific but concerning for metastatic disease. Mild to moderate mediastinal and supraclavicular lymphadenopathy, masses to the liver and a mass in the spleen and lymphadenopathy in the retroperitoneum possible pancreatic mass. Trace ascites. Renal ultrasound showed no hydronephrosis. Urinary bladder is decompressed via Abebe, probable perirenal cyst on the left,. Abdominal ultrasound which showed multiple liver masses. Trace inferior perihepatic free fluid. DISCHARGE DIAGNOSES: 1. Pancreatic cancer with metastatic lesions to the retroperitoneum, mediastinal , supraclavicular lymph nodes spleen, liver and chest. Patient going home and back to [facility] with [facility]. 2. Fluid volume overload. 3. Normocytic anemia. 4. Diverticulosis. 5. Urinary tract infection. HOSPITAL COURSE: Briefly, Ms. Sultana is an 86-year-old, female, with history of hypertension, diabetes mellitus, prior CVA, presented to the emergency room with increased confusion and lower extremity edema over the last 2-3 days. Daughter stated she had been in her normal state of health until probably about Tuesday where she started having a little bit of confusion and the last 24-48 hours she had become more confused and more lethargic. In the ED, she was found to have an hemoglobin and hematocrit of 6 and 20 and INR greater than 16, elevated LFT's. A Abebe catheter was placed in the emergency room, and the urine was grape juice colored with no clots. Daughter was unaware of any hypercoagulable events. She was unaware of any GI bleed or workup for GI bleeding. The patient was admitted and transferred to [facility]. She was given vitamin K in the ED along with 2 units of FFP and 2 units PRBC with a GI consult. CT of her chest, abdomen and pelvis did reveal scattered pulmonary nodules nonspecific but concerning for metastatic disease. Masses in the liver noted, mass in the spleen. Lymphadenopathy in the retroperitoneum. Possible pancreatic mass. Trace ascites and severe diverticulosis coli. Dr. Luz Fagan was also consulted. Patient's INR was corrected with FFP and vitamin K. She was monitored for additional bleeding. It was also discussed with them hospice care versus palliative chemo with a goal of symptom control and increased life expectancy. Palliative Care was also consulted. They have elected for comfort measures and would like to go back to [facility] with hospice services. [facility] was chosen. They have set everything up for the patient to go back to [place]. Ms. Sultana did not have any acute complaints. Currently her pain regimen has been effective and she is being discharged back to [facility] with [facility]. VITAL SIGNS: Temperature is 97.3 degrees, heart rate 113, respirations 18, blood pressure 128/56, O2 is 100% on 4 L nasal cannula. DISCHARGE MEDICATIONS: 1. 20 mg p.o. q.2 hours p.r.n. 2. Percocet 10/325 1 each p.o. q.6 hours p.r.n. DISPOSITION: The patient is being discharged back to [facility] with [facility]. FOLLOWUP: Patient can follow up with her primary care physician, Dr. Wilmer Figueroa. They can also to return to the ED for any worsening of symptoms. TIME SPENT: Thirty five minutes. Dictated by NEAL Lewis for Troy Schofield MD cc: MD Wilmer Palmer MD [facility] [place] DIVISIONDimas
[2016-12-09] MEDS ORDERED: DILAUDID IM ONE (16:52)
[2016-12-09 16:57] VITALS: BP 116/47
== END 2016-12-09 18:08 | disposition hospice, home (50) ==
LOC: P.ED 14:44 → SUATTDRO 16:53 → P.MEDSURG 16:53 → ICU 20:12 → 3N 12-08 09:57
PROVIDERS: ATTEND Internal Medicine